=== PATIENT | female | born 1975 ===

== ENCOUNTER 2019-05-11 10:20 | Outpatient (CLI) | payer OTHER | END 2019-05-11 10:21 | disposition home or self-care (01) | LOC: RAD 10:20 | DX: R05 Cough (principal) ==

== ENCOUNTER → 2020-05-28 | Emergency (ER) | payer OTHER ==
[~2020-05-28] VITALS: Ht 170.2 cm; Wt 64.9 kg
== END | disposition left against medical advice (07) ==
LOC: ER 22:45
DX: Z53.20 Procedure and treatment not carried out because of patient's decision for unspecified reasons (principal)